=== PATIENT | female | born 1950 | race Caucasian/White ===

== ENCOUNTER 2021-04-18 14:11 | Emergency (ER) | payer MEDICARE, OTHER ==
[2021-04-18] MEDS ORDERED: NORCO 5-325 TA1 EACH PO (22:24)
== END 2021-04-18 22:52 | disposition home or self-care (01) ==
LOC: FER 14:11
DX: S82.041A Displaced comminuted fracture of right patella, initial encounter for closed fracture (principal); I10 Essential (primary) hypertension; W01.0XXA Fall on same level from slipping, tripping and stumbling without subsequent striking against object, initial encounter; Y92.009 Unspecified place in unspecified non-institutional (private) residence as the place of occurrence of the external cause
CPT/HCPCS: 73560